=== PATIENT | male | born 1955 | race Caucasian/White ===

== ENCOUNTER 2020-07-07 06:34 | Outpatient (REF) | payer BC, SELFPAY ==
[2020-07-07 07:28] LABS: Hematocrit 44.4 % (42-52); Hemoglobin 14.6 g/dl (14.0-18.0); Mean Corpuscular HGB Conc 32.9 g/dl (31.0-36.0); Mean Corpuscular Volume 88.3 fL (80-98); Platelet Count 146 X10*3/uL (160-400); Red Blood Count 5.03 X10*6/uL (4.60-5.80); Red Cell Distribution Width 13.7 % (11.0-16.0); White Blood Count 4.8 X10*3/uL (4.8-10.8)
[2020-07-07 07:40] LABS: Estimated Average Glucose 111 mg/dL; Hemoglobin A1c % 5.5 %
[2020-07-07 07:50] LABS: Creatinine Urine 33.39 mg/dL; Microalbumin Urine < 5.0 mg/L
[2020-07-07 08:00] LABS: Alanine Aminotransferase 16 U/L (0-40); Albumin Level 4.4 g/dL (3.5-5.0); Alkaline Phosphatase 84 U/L (39-117); Anion Gap 12 (12-20); Aspartate Amino Transferase 23 U/L (5-37); Bilirubin Total 0.6 mg/dL (0.0-1.0); Blood Urea Nitrogen 19 mg/dL (9-16); Calcium 9.4 mg/dL (8.4-10.2); Carbon Dioxide 31 mmol/L (22-29); Chloride 103 mmol/L (96-108); Cholesterol 189 mg/dL; Estimated Glomerular Filt Rate > 60; Glucose Fasting 96 mg/dL (60-99); HDL Cholesterol 64 mg/dL; LDL Cholesterol Calculated 119 mg/dl; Potassium 3.9 mmol/L (3.3-5.1); Sodium 142 mmol/L (135-145); Total Protein 6.8 g/dL (6.5-8.0); Triglycerides 33 mg/dL
[2020-07-07 08:10] LABS: Prostate Specific Antigen Scr 1.18 ng/mL (<0.05-4.0)
== END 2020-07-07 06:35 | disposition home or self-care (01) ==
LOC: HO.LAB 06:34
PROVIDERS: PCP Physician Assistant; Visit Provider Physician Assistant
DX: I10 Essential (primary) hypertension (principal); Z12.5 Encounter for screening for malignant neoplasm of prostate
CPT/HCPCS: 36415; 80053; 80061; 82043; 83036; 84153; 84443; 85027

== ENCOUNTER 2023-09-26 12:36 | Outpatient (AMB) | payer SELFPAY ==
[2023-09-26 12:44] VITALS: BP 162/84; PULSE 50; O2SAT 98; BMI 22.3
--- NOTE | 2023-09-26 12:44 | MHC.PC.OV ---
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 Accompanied by: Spouse Allergies No Known Allergies Allergy (Verified 09/26/23 13:03) Medication List - Last Reconciled 09/26/23 by Vlad Mattson PA-C blood pressure monitor As directed nebivolol (Bystolic) 10 mg PO DAILY Tobacco use date assessed: 09/26/23 Fall risk assessment: No Falls in past year Last assessed Fall Risk: 09/26/23 Dental Screening Dental Screen Date: 09/26/23 Did you have a dental visit in the last 12 months?: No Did you have a dental problem in the last 6 months where you did not have access to dental care?: No Was dental information given to patient?: Patient has dentist HPI Memory Loss/Self Pay HPI Details A 68 year here today for a urgent problem visit. Has not had insurance in quite a while and so could not be seen. Patient has a past medical history significant for hypertension and continues on Bystolic with good effect. Does not check BP at home. concerns--> does reports more anxiety and depression lately . He reports having a lot of family issues and there has been alot on his plate . Also been having worsening memory impairment and are concerned about diagnosis of Alzheimer's dementia. We did discuss possibly getting MRI brain to evaluate for plaques and neurology referral though do not have insurance at this time and concerned about cost of this. PLAN : Will start Aricept [facility] Surgical History No pertinent past surgical history Family History Father No problems noted. Mother Lung cancer Social History Housing: House Patient Tobacco Use Status: Former Tobacco user Quit Date: 2018 Tobacco use type: Cigarette e-Cigarette/Vaping Use: Never Used Second Hand Smoke Exposure: No service: No Current occupational status: employed Questionnaire PHQ-9 Over the last 2 weeks, how often have you been bothered by any of the following problems? 1. Little interest or pleasure in doing things: more than half the days 2. Feeling down, depressed, or hopeless: several days 3. Trouble falling or staying asleep, or sleeping too much: not at all 4. Feeling tired or having little energy: more than half the days 5. Poor appetite or overeating: not at all 6. Feeling bad about yourself - or that you are a failure or have let yourself or your family down: several days 7. Trouble concentrating on things, such as reading the newspaper or watching television: not at all 8. Moving or speaking so slowly that other people could have noticed. Or the opposite - being so fidgety or restless that you have been moving around a lot more than usual: not at all 9. Thoughts that you would be better off or of hurting yourself in some way: not at all Total score: 6 Depression Screening Interpretation: Positive Depression Screening Follow-up: Existing condition Depression Screening Done: Yes 61332 - PHQ-9 Billing: Yes Source: Developed by Drs. Pancho Rush, Rut Denny, Zen Perla and colleagues, with an educational mayra from [employer]. Thrive Questionnaire Date Thrive assessed: 09/26/23 I am a: Patient What is your living situation today?: I have a steady place to live Within the past 12 months, did the food you bought not last and you didn't have the money to get more?: Never true Within the past 12 months, did you worry whether your food would run out before you got money to buy more?: Never true Do you have trouble paying for medicines?: No Do you have trouble getting transportation to medical appointments?: No Do you have trouble paying your heating and electricity bill?: No Do you have trouble taking care of your child, family member or friend?: No Do you have trouble with day-to-day activities such as bathing, preparing meals, shopping, managing finances, etc.?: No Are you currently unemployed and looking for a job?: No Are you interested in more education?: No Please select the resources that you would like help with: None Currently or been in a relationship where the following occur: no concerns reported THRIVE Score: 0 AUDIT C Alcohol Use Questionnaire (AUDIT-C) 1. How often do you have a drink containing alcohol?: Never Total Score: 0 HEIDI-7 AMB Questionnaire HEIDI-7 Date HEIDI - 7 assessed: 09/26/23 Feeling nervous, anxious, or on edge: 3 = Nearly every day Not being able to stop or control worryin = Nearly every day Worrying too much about different things: 3 = Nearly every day Trouble relaxin = Nearly every day Being so restless that it is hard to sit still: 3 = Nearly every day Becoming easily annoyed or irritable: 3 = Nearly every day Feeling afraid as if something awful might happen: 1 = Several days Total HEIDI-7 score (0-4 normal; 5-9 mild; 10-14 moderate; 15-21 severe): 19 Source: Developed by Drs. Pancho Rush, Rut Denny, Zen Perla and colleagues, with an educational mayra from [employer]. HEIDI-7 Assessment Billing HEIDI-7 Assessment Tool: HEIDI-7 Assessment 25705 Review of Systems Const Denies headache(s) Eyes Denies loss of vision ENT Denies vertigo, Denies dizziness, Denies headache(s) and Denies sore throat Card Denies chest pain, Denies leg edema and Denies lightheadedness Resp Denies cough, Denies hemoptysis and Denies wheezing GI Denies abdominal pain, Denies melena, Denies constipation, Denies diarrhea and Denies vomiting Denies dysuria, Denies urinary frequency and Denies urinary urgency Musc Denies arthralgias, Denies joint swelling, Denies numbness and Denies tingling Neuro Denies Abnormal speech present, Denies behavioral changes, Denies vertigo, Denies dizziness, Denies headache(s), Denies loss of vision, Reports memory loss, Denies numbness and Denies tingling Psych Denies anxiety, Denies behavioral changes, Denies depression, Reports memory loss and Denies panic attacks Grant/Lymph Denies easy bleeding and Denies easy bruising Aller/Immun Denies wheezing Physical exam (Primary Care) Vital Signs: Last Vital Signs Pulse 50 09/26/23 12:44 BP 162/84 H 09/26/23 12:44 Pulse Ox 98 09/26/23 12:44 Oxygen Delivery Method Room Air 09/26/23 12:44 BMI result Body Mass Index 22.3 Tobacco/Smoking Status: Tobacco use Status Tobacco use date assessed 09/26/23 09/26/23 12:48 Patient Tobacco Use Status Former Tobacco user 09/26/23 12:48 Tobacco use type Cigarette 09/26/23 12:48 e-Cigarette/Vaping Use Never Used 09/26/23 12:48 PHQ-9: PHQ-9 Score PHQ-9: Total score 6 09/26/23 13:09 Depression Screening Interpretation: Positive Depression Screening Follow-up: Existing condition Thrive Assessment: Date of Thrive Assessment Date Thrive assessed 09/26/23 09/26/23 12:48 Currently or been in a relationship where the following occur: no concerns reported Const General: healthy appearing, no acute distress, alert and awake Nutritional Appearance: well nourished Orientation/consciousness: oriented to person, oriented to place and oriented to time HENMT Ears: TM's normal bilaterally General nose exam: Normal nasal mucous membranes and turbinates present Eyes Conjunctivae: conjunctivae normal Sclerae: sclerae normal Pupils: Equal, round and reactive pupils present Neck Neck: Yes no lymphadenopathy and Yes no JVD Thyroid: Thyroid normal Carotids: no bruits Resp Effort & Inspection: normal respiratory effort and not tachypneic Auscultation: no crackles, no rales, no rhonchi and no wheezes Cardio Rate: regular rate Rhythm: regular rhythm Heart sounds: no murmurs and normal S1 and S2 GI Palpation (GI): Soft to palpation, nontender, no hepatomegaly and no splenomegaly Auscultation: normal bowel sounds Skin General skin exam: no rashes or lesions noted and dry skin Neuro General: oriented to person, oriented to place and oriented to time Cranial nerves: Yes Equal, round and reactive pupils present Speech: No Abnormal speech present Gait exam (Neuro): Normal gait present Motor exam (neuro): no tremor noted Extrem Right upper extremity: full ROM Left upper extremity: full ROM Right lower extremity: full ROM; no edema Left lower extremity: full ROM; no edema Psych Mental Status: mental status grossly normal Speech and movement: Normal speech and movement present Affect: normal affect Attitude: cooperative Thought process: Normal thought process present Results AMB Hemoglobin A1c AMB Hemoglobin A1c 6.0 % Last Edit by ZHANE Maurice on 09/26/23 13:02 Results Reviewed Results Reviewed: Laboratory Last Values Hgb A1c (Clinic) 6.0 % (4.0-6.0) 09/26/23 13:01 Assessment and Plan Assessment & Plan (1) HTN (hypertension): Code(s): I10 - Essential (primary) hypertension Qualifiers: Hypertension type: primary hypertension Qualified Code(s): I10 - Essential (primary) hypertension Plan: Blood pressure acceptable today in office. Will continue on current beta-keerthi dose as patient has been on this medication for quite awhile with good effect. Goal blood pressures to be below 140/90 (2) Dementia: Code(s): F03.90 - Unspecified dementia, unspecified severity, without behavioral disturbance, psychotic disturbance, mood disturbance, and anxiety Qualifiers: Dementia behavioral or psychological symptom: with anxiety Dementia severity: moderate Dementia type: unspecified type Qualified Code(s): F03.B4 - Unspecified dementia, moderate, with anxiety Plan: Patient seems to be having some worsening memory impairment. Offered brain MRI to evaluate for intracranial pathology though patient would like to hold off for now due to financial constraints. Also advised on neurology follow-up Patient and family are willing to start Aricept. (3) MDD (major depressive disorder), recurrent episode, moderate: Code(s): F33.1 - Major depressive disorder, recurrent, moderate Plan: Patient's PHQ-9 score positive for depression which has been existing condition for him. He does report feeling a bit more depressed due to financial issues and stress at home. Not interested in starting any depression medication at this time. (4) Impaired glucose metabolism: Code(s): R73.09 - Other abnormal glucose Plan: Most recent A1c is 6.0. Patient does understand he is in a prediabetic range would like to work on dietary modifications to reduce his A1c and fasting blood sugar. (5) Erectile dysfunction: Code(s): N52.9 - Male erectile dysfunction, unspecified Qualifiers: Erectile dysfunction type: due to other cause Qualified Code(s): N52.8 - Other male erectile dysfunction (6) Panic attack: Code(s): F41.0 - Panic disorder [episodic paroxysmal anxiety] Plan: Does have an issue with anxiety in often does have panic attacks. Will supply patient with p.r.n. use of low-dose lorazepam for panic. Did discuss the long-term side effects of using this medication regularly such as memory impairment, patient and family do understand and agree Orders: Orders AMB Hemoglobin A1c 09/26/23 Z13.1 - Encounter for screening for diabetes mellitus Microalbumin, Random (w Creat) 09/26/23 I10 - Essential (primary) hypertension Complete Blood Count no Diff 09/26/23 I10 - Essential (primary) hypertension Comprehensive [place]. Panel Fast 09/26/23 I10 - Essential (primary) hypertension Prostate Specific Antigen Scr 09/26/23 R73.09 - Other abnormal glucose, Z12.5 - Encounter for screening for malignant neoplasm of prostate Medications: New donepezil (Aricept) 5 mg PO BEDTIME 30 tabs 2RF 30 days F03.B4 - Unspecified dementia, moderate, with anxiety tadalafil (Cialis) 5 mg PO DAILY PRN 4 tabs 0RF sexual activity 4 days N52.8 - Other male erectile dysfunction lorazepam 0.5 mg PO DAILY PRN 5 tabs 0RF anxiety 5 days F41.0 - Panic disorder [episodic paroxysmal anxiety] Refilled nebivolol (Bystolic) 10 mg PO DAILY 30 tabs 6RF I10 - Essential (primary) hypertension Patient Instructions: Goal: Blood pressure to remain below 140/90 Barriers: Adherence to physical activity and healthy eating habits Coding Level of Care Code Est Pt Level 4 (75213) Complex EM visit Add On [id number] Diagnoses Primary hypertension I10 Hypertension type: primary hypertension Moderate dementia with anxiety, unspecified dementia type F03.B4 Dementia behavioral or psychological symptom: with anxiety Dementia severity: moderate Dementia type: unspecified type MDD (major depressive disorder), recurrent episode, moderate F33.1 Impaired glucose metabolism R73.09 Other male erectile dysfunction N52.8 Erectile dysfunction type: due to other cause Panic attack F41.0 Additional Codes HEIDI-7 Assessment Billing - HEIDI-7 Assessment Tool: HEIDI-7 Assessment 24677 ([id number])
== END 2023-09-26 13:38 | disposition home or self-care (01) ==
PROVIDERS: PCP Physician Assistant; Visit Provider Physician Assistant
DX: R73.09 Other abnormal glucose (principal)
CPT/HCPCS: 83036; 99214; G2211